=== PATIENT | male | born 1990 | race Caucasian/White ===

== ENCOUNTER 2017-05-05 10:27 | Emergency (ER) | payer OTHER ==
[~2017-05-05] VITALS: Ht 167.6 cm; Wt 68.0 kg
--- NOTE | ~2017-05-05 | CR72 ---
[facility] A Service of [facility] RADIOLOGY TEXT RESULTS PATIENT: MARTIR CARO LOCATION: [facility] : [birth year] UNIT #: [id number] AGE: [address]: Wood Delgado MD SEX: M ORDER DR: [id number] [facility] [address] [place], [place] [address] [id number] E MR#: [id number] Acc #: [id number] NAME: MARTIR CARO : 1990 SEX: M STUDY DATE/TIME: 05/05/2017 11:27 UNIT: [facility] ROOM: STUDY DESCRIPTION: CR Chest Single View Portable Attending Physician: Wood Delgado M.D. Ordering Physician: [id number] Castillo Delgado MEDICAL IMAGING REPORT This report is preliminary unless electronic signature is present EXAM Frontal chest 05/05/2017 INDICATIONS 26-year-old male with a cough, congestion, weight loss, drainage, vomiting symptoms a month. TECHNIQUE Frontal chest compared with 03/17/2015 FINDINGS Cardiac silhouette within normal limits. Vascularity is normal. Lungs clear. No pneumothorax. IMPRESSION 1. Negative frontal chest. Dictated by... Jacob Peace M.D. THIS IS AN ELECTRONICALLY VERIFIED REPORT Jacob Peace M.D. at 05/06/2017 2:55 PM IRVIN/akash TD: 05/06/2017 09:16 JOB #: [id number] MEDICAL IMAGING REPORT Page 1 of 1 COPY
[~2017-05-05 10:27] MED LIST: IBUPROFEN PO
[2017-05-05 11:22] LABS: BASOPHIL% 0.2 % (0-2.5); EOSINOPHIL# 0.2 X10e3 (0-0.7); EOSINOPHIL% 2.9 % (0.0-7.0); HEMATOCRIT 52.6 % (38.0-50.0); HEMOGLOBIN 17.7 gm/dL (13.0-16.0); LYMPHOCYTE# 1.3 X10e3 (1.0-3.5); LYMPHOCYTE% 16.7 % (17.0-45.0); MEAN CORPUSCULAR HEMOGLOBIN 30.5 PG (28-34); MEAN CORPUSCULAR HGB CONC 33.6 g/dL (30-36); MEAN PLATELET VOLUME 11.1 FL (6.5-11.5); MONOCYTE# 0.6 X10e3 (0-1.0); MONOCYTE% 7.2 % (3.0-12.0); NEUTROPHIL# 5.9 X10e3 (1.5-7.1); PLATELET COUNT 160 X10e3 (140-420); RED BLOOD COUNT 5.79 X10e (3.90-5.60); RED CELL DISTRIBUTION WIDTH 13.5 % (11.0-15.5); WHITE BLOOD COUNT 8.1 X10e3 (4.0-10.5)
[2017-05-05 11:25] LABS: DIFF IND NO
[2017-05-05 12:34] LABS: ALBUMIN SERUM 4.7 g/dL (3.5-5.0); BILIRUBIN, DIRECT 0.2 mg/dL (0.0-0.2); BILIRUBIN,INDIRECT 0.4 mg/dL (0.0-0.9); BILIRUBIN,TOTAL 0.6 mg/dL (0.2-2.0); BUN/CREATININE RATIO 7.5; CALCIUM SERUM 9.6 mg/dL (8.4-10.2); CREATININE SERUM 1.2 mg/dL (0.6-1.4); GLOM FILT RATE Estimated 84.2 mL/min (>60); POTASSIUM 4.7 mmol/L (3.5-5.1); PROTEIN TOTAL SERUM 7.9 g/dL (6.0-8.3)
[2017-05-05 13:28] LABS: URINE SOURCE CLEAN CATCH
[2017-05-05 14:41] LABS: URINE APPEARANCE CLEAR; URINE BILIRUBIN NEG (NEG); URINE BLOOD NEG (NEG); URINE COLOR YELLOW; URINE GLUCOSE NEG (NEG); URINE KETONE TRACE (NEG); URINE LEUKOCYTE ESTERASE NEG (NEG); URINE NITRATE NEG (NEG); URINE PH 7.5 (5-8); URINE PROTEIN TRACE (NEG); URINE SPECIFIC GRAVITY 1.025 (1.003-1.035)
[2017-05-05 14:45] LABS: CULTURE INDICATED? NO
[2017-05-05 15:02] LABS: AMPHETAMINE NEG (NEG); BARBITURATES NEG (NEG); BENZODIAZEPINES NEG (NEG); COCAINE NEG (NEG); MARIJUANA POS (NEG); OPIATES NEG (NEG); TRICYCLIC ANTIDEPRESSANTS NEG (NEG); U METHADONE NEG (NEG)
== END 2017-05-05 14:13 | disposition home or self-care (01) ==
LOC: CED 10:27
PROVIDERS: Emergency Medicine
DX: R11.2 Nausea with vomiting, unspecified (principal); R05 Cough
CPT/HCPCS: 36415; 71010; 80048; 80076; 80307; 81003; 83690; 85025; 96360; 99284